=== PATIENT | male | born 1980 | race Caucasian/White ===

== ENCOUNTER 2018-08-06 20:43 | Emergency (ER) | payer OTHER ==
[~2018-08-06] VITALS: Ht 162.6 cm; Wt 65.8 kg
[~2018-08-06 20:43] MED LIST: PROTONIX40 MG
== END 2018-08-06 23:01 | disposition home or self-care (01) ==
LOC: ER 20:43
DX: K59.09 Other constipation (principal); R10.814 Left lower quadrant abdominal tenderness

== ENCOUNTER 2020-06-23 10:37 | Outpatient (CLI) | payer OTHER | END 2020-06-23 10:49 | disposition home or self-care (01) | LOC: RAD 10:37 | PROVIDERS: ATTEND Orthopaedic Surgery | DX: M25.572 Pain in left ankle and joints of left foot (principal) ==

== ENCOUNTER 2022-03-15 10:40 | Emergency (ER) | payer OTHER ==
[~2022-03-15] VITALS: Ht 162.6 cm; Wt 63.5 kg
== END 2022-03-15 13:11 | disposition home or self-care (01) ==
LOC: ER 10:40
DX: J02.8 Acute pharyngitis due to other specified organisms (principal)